=== PATIENT | male | born 1975 | race Caucasian/White ===

== ENCOUNTER 2017-09-29 09:06 | Emergency (ER) | payer BC, OTHER ==
[2017-09-29 09:17] VITALS: BP 162/99; PULSE 118; RESP 20; TEMP 98
--- NOTE | 2017-09-29 09:32 | ED ---
Seizure HPI - General Chief Complaint: Seizure Stated Complaint: SEIZURE Time Seen by Provider: 09/29/17 09:12 Source: patient, EMS Mode of arrival: EMS Limitations: no limitations - History of Present Illness Initial Comments: Patient reportedly had a seizure. He states that he hit the back of his head during the seizure, but he currently has no pain anywhere. He has no neck pain or stiffness. He has no change in vision or hearing. He does not feel like he is going to have another seizure. He has no fever, chills, chest pain or shortness of breath. He has no belly or back pain. He has no nausea or vomiting. He has no lightheadedness or dizziness. He has no focal weakness or trouble walking. He is tolerating oral intate. - Related Data Home Medications Medication Instructions Recorded Confirmed No Known Home Medications [No 09/29/17 09/29/17 Known Home Medications] Allergies Allergy/AdvReac Type Severity Reaction Status Date / Time No Known Allergies Allergy Verified 09/29/17 09:20 Review of Systems ROS Statement: Those systems with pertinent positive or pertinent negative responses have been documented in the HPI. ROS Other: All systems not noted in ROS Statement are negative. Past Medical History Past Medical History: No Reported History History of Any Multi-Drug Resistant Organisms: None Reported Additional Past Surgical History / Comment(s): cyst removal Past Psychological History: No Psychological Hx Reported Smoking Status: Current every day smoker Past Alcohol Use History: Abuse Past Drug Use History: None Reported General Exam Limitations: no limitations General appearance: alert, in no apparent distress Head exam: Present: atraumatic, normocephalic, normal inspection Eye exam: Present: normal appearance, PERRL, EOMI. Absent: scleral icterus, conjunctival injection, periorbital swelling ENT exam: Present: normal exam, mucous membranes moist Neck exam: Present: normal inspection. Absent: tenderness, meningismus, lymphadenopathy Respiratory exam: Present: normal lung sounds bilaterally. Absent: respiratory distress, wheezes, rales, rhonchi, stridor Cardiovascular Exam: Present: regular rate, normal rhythm, normal heart sounds. Absent: systolic murmur, diastolic murmur, rubs, gallop, clicks GI/Abdominal exam: Present: soft, normal bowel sounds. Absent: distended, tenderness, guarding, rebound, rigid Extremities exam: Present: normal inspection, full ROM, normal capillary refill. Absent: tenderness, pedal edema, joint swelling, calf tenderness Back exam: Present: normal inspection Neurological exam: Present: alert, oriented X3, CN II-XII intact Psychiatric exam: Present: normal affect, normal mood Skin exam: Present: warm, dry, intact, normal color. Absent: rash Course Vital Signs 09/29/17 09:10 Temperature 98.0 F Pulse Rate 118 H Respiratory 20 Rate Blood Pressure 162/99 O2 Sat by Pulse 100 Oximetry Medical Decision Making - Medical Decision Making Patient presents after a reported seizure. He has a completely normal physical examination. He does not want any workup. He is planning on leaving immediately. I advised him to stay for head imaging and laboratory workup. However he refused and is leaving against medical advice. Disposition Clinical Impression: Generalized seizure Disposition: Left Against Medical Advice Condition: Good Instructions: New-Onset Seizure in Adults (ED) Referrals: Alexandria Youngblood MD [Primary Care Provider] - 1-2 days Time of Disposition: 09:32
== END 2017-09-29 09:35 | disposition left against medical advice (07) ==
LOC: EC 09:06
DX: R56.9 Unspecified convulsions (principal); F17.200 Nicotine dependence, unspecified, uncomplicated
CPT/HCPCS: 99284

== ENCOUNTER 2017-09-29 16:56 | Emergency (ER) | payer BC, OTHER ==
[2017-09-29] MEDS ORDERED: RX INFO: IV CONTRAST WAS GIVEN 1 EACH MISC MISCELLANE PRN (17:01)
[2017-09-29 17:11] LABS: Glucose,Whole Blood 102 mg/dL (75-99)
[2017-09-29] MEDS ORDERED: levETIRAcetam IV 1,000 MG in SALINE 1 100ML.BAG IVPB STA (17:23)
--- NOTE | 2017-09-29 17:25 | ED ---
General Adult HPI - General Chief complaint: Neuro Symptoms/Deficit Stated complaint: Alterd Mental State Time Seen by Provider: 09/29/17 16:56 Source: EMS, RN notes reviewed Mode of arrival: EMS Limitations: altered mental status, physical limitation - History of Present Illness Initial comments: Patient is a 41-year-old male presenting by EMS for change in mental status. Patient answers questions inappropriately and is not a reliable historian. Reportedly patient had a seizure earlier. Patient came to the emergency department and left refusing treatment. came home from work and found patient sleeping and altered. EMS feels patient has right-sided weakness. - Related Data Home Medications Medication Instructions Recorded Confirmed No Known Home Medications [No 09/29/17 09/29/17 Known Home Medications] Allergies Allergy/AdvReac Type Severity Reaction Status Date / Time No Known Allergies Allergy Verified 09/29/17 17:17 Review of Systems ROS Statement: Those systems with pertinent positive or pertinent negative responses have been documented in the HPI. ROS Other: All systems not noted in ROS Statement are negative. Limitations: ROS unobtainable due to patients medical condition Past Medical History Past Medical History: No Reported History History of Any Multi-Drug Resistant Organisms: None Reported Additional Past Surgical History / Comment(s): cyst removal Past Psychological History: No Psychological Hx Reported Smoking Status: Current every day smoker Past Alcohol Use History: Abuse Past Drug Use History: None Reported General Exam Limitations: altered mental status, physical limitation General appearance: alert, other (Patient has difficulty following commands. Inappropriate responses verbally.) Head exam: Present: other (Soft tissue swelling left posterior parietal region.) Eye exam: Present: normal appearance, PERRL, other (Difficulty with gaze to the right, limited exam.) ENT exam: Present: normal oropharynx Neck exam: Present: other (C-collar was applied). Absent: tenderness Respiratory exam: Present: normal lung sounds bilaterally Cardiovascular Exam: Present: regular rate, normal rhythm Expanded Peripheral pulses: 2+: Radial (R), Radial (L), Dorsalis Pedis (R), Dorsalis Pedis (L) GI/Abdominal exam: Present: soft. Absent: tenderness Extremities exam: Present: normal inspection Neurological exam: Present: alert, altered Expanded Neurological exam: Present: other (Inappropriate words. Does not follow commands. Patient does appear to have right-sided facial weakness on limited exam. Patient appears to have right upper extremity weakness and does not withdraw from pain. Patient does withdraw from pain to other extremities. Difficult with gaze to the right. Patient does move left upper and lower extremity spontaneously. No spontaneous movement of the right leg however does withdraw to pain.) Speech: Present: expressive aphasia Motor strength exam: RUE: 0 Eye Response: (4) open spontaneously Motor Response: (4) withdraws to pain Verbal Response: (3) inappropriate words Psychiatric exam: Present: normal affect, normal mood Skin exam: Present: normal color Course Vital Signs 09/29/17 09/29/17 09/29/17 17:08 17:15 17:30 Temperature 98.0 F Pulse Rate 84 65 60 Respiratory 18 16 20 Rate Blood Pressure 136/84 131/85 125/82 O2 Sat by Pulse 98 99 96 Oximetry 09/29/17 17:45 Temperature Pulse Rate 76 Respiratory 18 Rate Blood Pressure 125/82 O2 Sat by Pulse 96 Oximetry - Reevaluation(s) Reevaluation #1: 09/29/17 17:23 Case was discussed in detail with neural interventional list Dr. Cross who will accept transfer to [facility]. He does recommend blood pressure systolic less than 160 and Keppra 1000 mg. 09/29/17 17:40 Mother is present. Further history taken from the mother. She states patient this morning was in the garage and suddenly passed out and had reported seizure activity. She states no history of seizure. Patient is in the process of detoxing from alcohol. Patient was in a facility in [place] recently. She states he may have had a drink a few days ago however is not quite certain because the patient could not recall. Mother states after the seizure this morning when he returned home he was acting normal. She states he did take a longer nap for around 3 hours and noticed him acting abnormal at that point. Mother is updated on results and concern and plan. 09/29/17 18:01 Return phone call from [facility] and patient will go to room 514. Patient will be intubated for airway control. 09/29/17 18:18 IV labetalol will be provided to EMS for blood pressure control if systolic blood pressure raises more than 160. EKG Findings - EKG Comments: EKG Findings:: Normal sinus rhythm 76. AL 122. QRS 84. QT 380. QTC 427. Normal axis. Normal QRS. No acute ST change. Procedures - Intubation Sedative: Versed Paralytic: Succinylcholine (Patient was not able to be fully sedated with Versed to allow intubation.) Laryngoscope: Larkin Size: 3 ET Tube Size: 8 Tube Secured Depth (cm): 23 Tube Placement Confirmation: visualized tube passing through cords, equal breath sounds bilaterally, no breath sounds over epigastrium Patient Tolerated Procedure: well, no complications Intubation Complications: none Medical Decision Making - Lab Data Result diagrams: 09/29/17 17:09/29/17 17:03 Lab Results 09/29/17 09/29/17 09/29/17 Range/Units 17:03 17:03 17:03 WBC 15.8 H (3.8-10.6) k/uL RBC 4.90 (4.30-5.90) m/uL Hgb 15.5 (13.0-17.5) gm/dL Hct 48.1 (39.0-53.0) % MCV 98.2 (80.0-100.0) fL MCH 31.6 (25.0-35.0) pg MCHC 32.2 (31.0-37.0) g/dL RDW 15.4 (11.5-15.5) % PT (9.0-12.0) sec INR (<1.2) APTT (22.0-30.0) sec Sodium 136 L (137-145) mmol/L Potassium 4.0 (3.5-5.1) mmol/L Chloride 103 (98-107) mmol/L Carbon Dioxide 22 (22-30) mmol/L Anion Gap 11 mmol/L BUN 10 (9-20) mg/dL Creatinine 0.60 L (0.66-1.25) mg/dL Est GFR (MDRD) Af Amer >60 (>60 ml/min/1.73 sqM) Est GFR (MDRD) Non-Af >60 (>60 ml/min/1.73 sqM) Glucose 106 H (74-99) mg/dL POC Glucose (mg/dL) (75-99) mg/dL POC Glu Real Time Operator ID Calcium 10.0 (8.4-10.2) mg/dL Total Bilirubin 0.8 (0.2-1.3) mg/dL AST 145 H (17-59) U/L ALT 132 H (21-72) U/L Alkaline Phosphatase 114 (38-126) U/L Total Creatine Kinase 431 H (55-170) U/L CK-MB (CK-2) 2.5 H* (0.0-2.4) ng/mL CK-MB (CK-2) Rel Index 0.6 Troponin I 0.016 (0.000-0.034) ng/mL Total Protein 7.0 (6.3-8.2) g/dL Albumin 4.1 (3.5-5.0) g/dL Serum Alcohol <10 mg/dL 09/29/17 09/29/17 Range/Units 17:03 17:06 WBC (3.8-10.6) k/uL RBC (4.30-5.90) m/uL Hgb (13.0-17.5) gm/dL Hct (39.0-53.0) % MCV (80.0-100.0) fL MCH (25.0-35.0) pg MCHC (31.0-37.0) g/dL RDW (11.5-15.5) % PT 9.9 (9.0-12.0) sec INR 1.0 (<1.2) APTT 23.9 (22.0-30.0) sec Sodium (137-145) mmol/L Potassium (3.5-5.1) mmol/L Chloride (98-107) mmol/L Carbon Dioxide (22-30) mmol/L Anion Gap mmol/L BUN (9-20) mg/dL Creatinine (0.66-1.25) mg/dL Est GFR (MDRD) Af Amer (>60 ml/min/1.73 sqM) Est GFR (MDRD) Non-Af (>60 ml/min/1.73 sqM) Glucose (74-99) mg/dL POC Glucose (mg/dL) 102 H (75-99) mg/dL POC Glu Real Time Operator ID Leeann Sommer Calcium (8.4-10.2) mg/dL Total Bilirubin (0.2-1.3) mg/dL AST (17-59) U/L ALT (21-72) U/L Alkaline Phosphatase (38-126) U/L Total Creatine Kinase (55-170) U/L CK-MB (CK-2) (0.0-2.4) ng/mL CK-MB (CK-2) Rel Index Troponin I (0.000-0.034) ng/mL Total Protein (6.3-8.2) g/dL Albumin (3.5-5.0) g/dL Serum Alcohol mg/dL - Radiology Data Radiology results: report reviewed (Computed tomography scan of the cervical spine shows no acute fracture or dislocation.), image reviewed (Computed tomography scan of the brain shows large left intracranial hemorrhage with local mass effect. Mao left scalp hematoma.) Critical Care Time Critical Care Time: Yes Total Critical Care Time: 36 Disposition Clinical Impression: Intracranial hemorrhage Disposition: OTHER INSTITUTION NOT DEFINED Referrals: Alexandria Youngblood MD [Primary Care Provider] - 1-2 days Time of Disposition: 18:19 - Out of Hospital Transfer - Req. Specs Out of Hospital Transfer - Requested Specifics: Other Emergency Center
--- NOTE | 2017-09-29 17:30 | CT ---
EXAMINATION TYPE: CT brain wo con for TPA DATE OF EXAM: 09/29/2017 COMPARISON: NONE HISTORY: Patient had possible seizure with fall today. Neurological deficits. CT DLP: 903.4 mGycm Automated exposure control for dose reduction was used. FINDINGS: There is 5.6 cm AP by 4.4 cm transverse by 5.8 cm craniocaudal dimension on axial image 38 and sagitt al image 32 with some peripheral hypodensity strongly suspicious for large acute intraparenchymal hem orrhage. Local mass effect is present. There is midline shift of 5 to 6 mm just above level of septum pellucidum on axial image 32. There is large left-sided acute scalp hematoma. The calvarium is intac t. There is near complete opacification or hemorrhage into the right maxillary sinus. Remainder paran juancho sinuses are clear. Visualized globes are intact bilaterally. Suprasellar cistern is maintained. Posterior fossa is within normal limits. IMPRESSION: Large left-sided acute intraparenchymal hemorrhage with local mass effect and small degree of midline shift. Large adjacent left-sided scalp hematoma. Critical results communicated to ordering ER physician via telephone at time of dictation.
--- NOTE | 2017-09-29 17:34 | CT ---
EXAMINATION TYPE: CT cervical spine wo con DATE OF EXAM: 09/29/2017 COMPARISON: NONE HISTORY: Patient had possible seizure with fall today. Neurological deficits. CT DLP: 346.4 mGycm. Automated Exposure Control for Dose Reduction was Utilized. TECHNIQUE: CT scan of the cervical spine is obtained without contrast, axial images are obtained, sa gittal and coronal reformatted images are also reviewed. FINDINGS: Cervical spine is visualized in its entirety from C1 through upper thoracic levels, demonst rates straightened alignment without evidence of acute fracture or dislocation. Prevertebral soft ti ssue appears within normal limits. The C1-C2 articulation is within normal limits on the coronal andre ges. Vertebral body heights are maintained. There is moderate disc space narrowing and spurring C5-C6 leve l. There is mild to moderate spurring and disc space narrowing C6-C7 level. Some artifact lower cervi rosie levels is present. Spinal canal is grossly preserved. Review of axial images shows left-sided uncovertebral facet degenerative changes C2-C3 and C3-C4 leve l. There is marginal spurring causing moderate to severe right and mild to moderate left-sided neural foraminal narrowing C5-C6 level on axial image 35. Thyroid gland is within normal limits. There is e mphysematous change with bleb formation in both apices. IMPRESSION: There is no acute fracture or dislocation evident in the cervical spine.
[2017-09-29 17:41] LABS: Basophils # (A) 0.1 k/uL (0-0.2); Basophils % (A) 0 %; CH 32.5; CHCM 33.2; Eosinophils # (A) 0.1 k/uL (0-0.7); Eosinophils % (A) 1 %; HCT 48.1 % (39.0-53.0); HDW 2.07; HGB 15.5 gm/dL (13.0-17.5); Luc # (Auto) 0.33; Luc % (Auto) 2; Lymphocytes # (A) 1.5 k/uL (1.0-4.8); Lymphocytes % (A) 9 %; MCH 31.6 pg (25.0-35.0); MCHC 32.2 g/dL (31.0-37.0); MCV 98.2 fL (80.0-100.0); Mean Platelet Volume 8.9; Monocytes % (A) 6 %; Neutrophils # (A) 12.8 k/uL (1.3-7.7); Neutrophils % (A) 81 %; RDW 15.4 % (11.5-15.5); WBC 15.8 k/uL (3.8-10.6); WBC (Perox) 15.56
[2017-09-29 17:44] LABS: ALT 132 U/L (21-72); AST 145 U/L (17-59); Alcohol <10 mg/dL; Alkaline Phosphatase 114 U/L (38-126); Anion Gap 11 mmol/L; Blood Urea Nitrogen 10 mg/dL (9-20); Carbon Dioxide 22 mmol/L (22-30); Chloride 103 mmol/L (98-107); Glucose 106 mg/dL (74-99); Non-African American GFR(MDRD) >60 (>60 ml/min/1.73 sqM); Sodium 136 mmol/L (137-145); Total Bilirubin 0.8 mg/dL (0.2-1.3)
[2017-09-29] MEDS ORDERED: LORazepam 2 MG/ML INJ IV PRN (17:50)
[2017-09-29] MEDS ORDERED: MIDAZOLAM (PF) 1 MG/ML 5 ML VIAL IV STA (17:51)
[2017-09-29] MEDS ORDERED: LIDOCAINE 2% INJ 20 MG/ML (20 ML MDV) IV ONE (17:51)
[2017-09-29 17:53] LABS: Partial Thromboplastin Time 23.9 sec (22.0-30.0); Prothrombin Time 9.9 sec (9.0-12.0)
[2017-09-29 17:54] LABS: Troponin I 0.016 ng/mL (0.000-0.034)
[2017-09-29 17:58] LABS: Creatine Kinase MB 2.5 ng/mL (0.0-2.4)
[2017-09-29] MEDS ORDERED: LIDOCAINE 2% SYG (PF) 100 MG/5 ML IV STA (18:09)
[2017-09-29] MEDS ORDERED: SUCCINYLCHOLINE CHLORIDE VIAL 200 MG/10 ML VIAL IV STA (18:12)
[2017-09-29] MEDS ORDERED: PROPOFOL 1,000 MG/100 ML VIAL IV ONE (18:29)
[2017-09-29] MEDS ORDERED: LABETALOL 5 MG/ML VIAL MDV IVP PRN (18:30)
[2017-09-29] MEDS: PROPOFOL 1,000 MG/100 ML VIAL IV SCH ×2 (18:31→18:48)
--- NOTE | 2017-09-29 18:36 | XR ---
EXAMINATION TYPE: XR chest 1V portable DATE OF EXAM: 09/29/2017 COMPARISON: NONE HISTORY: Tube placement. TECHNIQUE: Single AP portable frontal supine view of the chest is obtained. FINDINGS: There is endotracheal tube with tip at midclavicular margin, approximately 4 to 5 cm above the layne. There is orogastric tube projecting below left hemidiaphragm. Low lung volumes are present. There is central congestion. There is no suspicious peripheral focal ai rspace opacity, pleural effusion, or pneumothorax seen bilaterally. Cardiac silhouette size is upper limits of normal. Prominent mediastinum may be projectional. Correlate for trauma. Visualized osseous structures are intact. IMPRESSION: Endotracheal and orogastric tubes are satisfactory in position. Other findings as noted a soheila.
[2017-09-29] MEDS: LORazepam 2 MG/ML INJ IV PRN ×2 (18:42→18:49)
[2017-09-29 19:13] VITALS: BP 128/71; PULSE 108; RESP 14; TEMP 97.9
== END 2017-09-29 19:05 | disposition other institution (70) ==
LOC: EC 16:56
DX: I62.9 Nontraumatic intracranial hemorrhage, unspecified (principal); F17.200 Nicotine dependence, unspecified, uncomplicated
CPT/HCPCS: 99291; 31500; 96365; 96375 ×3; 36415; 94002; 93005; 80053; 82550; 82553; 84484; 85025; 85610; 85730; 80306; 80320; 71010; 72125; 70450; J0330; J2060; J2001; J2250; J2704; J1953; 99284

== ENCOUNTER → 2017-12-31 | Outpatient (CLI) | payer BC ==
--- NOTE | 2017-12-31 08:23 | CT ---
EXAMINATION TYPE: CT brain wo con DATE OF EXAM: 12/31/2017 COMPARISON: 12/17/2017, 09/29/2017 INDICATION: Seizure recent brain surgery DLP: 892.1 mGycm, Automated exposure control for dose reduction was used. CONTRAST: None CT of the brain is performed utilizing 3 mm thick sections through the posterior fossa and 3 mm thick sections through the remaining calvarium. Study is performed within 24 hours of arrival to the hosp ital. There is a left temporal craniotomy. Some minimal extra-axial air is adjacent compatible with the pat ient's recent surgery. There is some hypodensity in the lateral aspect of the distal left temporal lo be laterally adjacent to the craniotomy. Some ischemic change may be present at this location. Postsu rgical encephalomalacia change could be considered. This is an interval change from 12/17/2017. There is been interval placement of a osseous craniotomy plate and multiple skin mirna are present superficially. There is some superficial subcutaneous air present small amount of fluid appears to be adjacent to the dura. This is likely postsurgical fluid. This has a depth of 0.5 cm. Subacute subdur al hemorrhage could be considered. Acute hemorrhage is not identified The white matter hypodensity at the centrum semiovale probably posteriorly is improved. There is some local mass effect on the adjacent sulci. Small amount of hypodensity is in the left frontal lobe shon r the craniotomy plate which may be better visualized currently than the previous exam. This may be s lightly enlarged. Fourth ventricle is midline. Third ventricle is midline. Lateral ventricles are normal position. Righ t lateral ventricle appears unremarkable. The left lateral ventricle is slightly prominent in the occ ipital region which may be related to some ex vacuo effect. No acute intracranial hemorrhages are evident. No acute infarcts are evident. IMPRESSIONS: 1. Postsurgical changes with recent placement of a osseous plate through the calvarial defect on th e left. Postsurgical changes are adjacent. 2. No acute hemorrhage. Postsurgical change versus subacute minimal subdural hematoma on the left wit hout significant mass effect on the adjacent brain. 3. New area of hypodensity within the lateral distal left temporal lobe and increasing hypodensity in the left frontal lobe. Encephalomalacia changes versus subacute infarcts could be considered. 4. Encephalomalacia changes from prior hemorrhage site in the left centrum semiovale appears diminish ed in size compared to the recent exam.
== END | disposition home or self-care (01) ==
LOC: RADXRMAIN 07:50
PROVIDERS: ATTEND Family Medicine
DX: R90.89 Other abnormal findings on diagnostic imaging of central nervous system (principal)
CPT/HCPCS: 70450

== ENCOUNTER 2018-08-04 13:12 | Emergency (ER) | payer BC ==
[2018-08-04] MEDS ORDERED: LORazepam 2 MG/ML INJ IV STA (13:23)
[2018-08-04 13:29] VITALS: RESP 18; TEMP 98.9
--- NOTE | 2018-08-04 13:37 | ED ---
General Adult HPI - General Stated complaint: Seizure Time Seen by Provider: 08/04/18 13:12 Source: RN notes reviewed - History of Present Illness Initial comments: This is a 42-year-old male with past medical history significant for alcoholism stroke and seizures. Patient takes Depakote daily. Patient continues to drink. Patient states the last time he drank was yesterday. Patient's states he had a seizure that last approximate 5 minutes and he had a postictal states that lasted about 10 minutes. Patient denies any drinking today. Patient states she's not been ill recently at all. Patient denies any recent fever chills. Patient denies any chest pain palpitations difficulty breathing shortness of breath. Patient denies abdominal pain patient denies nausea vomiting diarrhea. Patient denies any headache patient denies any new numbness or weakness. Patient states he has residual right-sided weakness of the arm and leg but nothing is worse currently - Related Data Home Medications Medication Instructions Recorded Confirmed Divalproex ER [Depakote ER] 250 mg PO BID 08/04/18 08/04/18 Allergies Allergy/AdvReac Type Severity Reaction Status Date / Time No Known Allergies Allergy Verified 08/04/18 13:59 Review of Systems ROS Statement: Those systems with pertinent positive or pertinent negative responses have been documented in the HPI. ROS Other: All systems not noted in ROS Statement are negative. Past Medical History Past Medical History: No Reported History History of Any Multi-Drug Resistant Organisms: None Reported Additional Past Surgical History / Comment(s): cyst removal Past Psychological History: No Psychological Hx Reported Smoking Status: Current every day smoker Past Alcohol Use History: Abuse Past Drug Use History: None Reported General Exam - General Exam Comments Initial Comments: GENERAL: Patient is well-developed and well-nourished. Patient is nontoxic and well- hydrated and is in mild distress. ENT: Neck is soft and supple. No significant lymphadenopathy is noted. Oropharynx is clear. Moist mucous membranes. Neck has full range of motion without eliciting any pain. EYES: The sclera were anicteric and conjunctiva were pink and moist. Extraocular movements were intact and pupils were equal round and reactive to light. Eyelids were unremarkable. PULMONARY: Unlabored respirations. Good breath sounds bilaterally. No audible rales rhonchi or wheezing was noted. CARDIOVASCULAR: There is a regular rate and rhythm without any murmurs gallops or rubs. ABDOMEN: Soft and nontender with normal bowel sounds. SKIN: Skin is clear with no lesions or rashes and otherwise unremarkable. NEUROLOGIC: Patient is alert and oriented x3. Cranial nerves II through XII are grossly intact. Motor and sensory are also intact. Normal speech, volume and content. Symmetrical smile. MUSCULOSKELETAL: Normal extremities with adequate strength and full range of motion. LYMPHATICS: No significant lymphadenopathy is noted PSYCHIATRIC: Normal psychiatric evaluation. Course Vital Signs 08/04/18 13:25 Temperature 98.9 F Pulse Rate 66 Respiratory 18 Rate Blood Pressure 129/79 O2 Sat by Pulse 97 Oximetry Medical Decision Making - Medical Decision Making Patient's Depakote level was low. I gave the patient 500 mg difficulty in the emergency department. Patient's states he does not take his medications regular. Patient's states he won't stop drinking daily. - Lab Data Result diagrams: 08/04/18 13:33 08/04/18 13:33 Lab Results 08/04/18 08/04/18 Range/Units 13:33 13:33 WBC 10.2 (3.8-10.6) k/uL RBC 5.34 (4.30-5.90) m/uL Hgb 16.2 (13.0-17.5) gm/dL Hct 50.0 (39.0-53.0) % MCV 93.7 (80.0-100.0) fL MCH 30.3 (25.0-35.0) pg MCHC 32.3 (31.0-37.0) g/dL RDW 15.0 (11.5-15.5) % Plt Count 209 (150-450) k/uL Neutrophils % 77 % Lymphocytes % 14 % Monocytes % 6 % Eosinophils % 1 % Basophils % 0 % Neutrophils # 7.8 H (1.3-7.7) k/uL Lymphocytes # 1.4 (1.0-4.8) k/uL Monocytes # 0.6 (0-1.0) k/uL Eosinophils # 0.1 (0-0.7) k/uL Basophils # 0.1 (0-0.2) k/uL Sodium 138 (137-145) mmol/L Potassium 4.7 (3.5-5.1) mmol/L Chloride 104 (98-107) mmol/L Carbon Dioxide 23 (22-30) mmol/L Anion Gap 11 mmol/L BUN 11 (9-20) mg/dL Creatinine 0.72 (0.66-1.25) mg/dL Est GFR (CKD-EPI)AfAm >90 (>60 ml/min/1.73 sqM) Est GFR (CKD-EPI)NonAf >90 (>60 ml/min/1.73 sqM) Glucose 100 H (74-99) mg/dL Calcium 9.4 (8.4-10.2) mg/dL Magnesium 1.9 (1.6-2.3) mg/dL Total Bilirubin 0.8 (0.2-1.3) mg/dL AST 49 (17-59) U/L ALT 43 (21-72) U/L Alkaline Phosphatase 86 (38-126) U/L Total Protein 6.8 (6.3-8.2) g/dL Albumin 4.2 (3.5-5.0) g/dL Valproic Acid 13.8 ug/mL Serum Alcohol <10 mg/dL Disposition Clinical Impression: Generalized seizure, Alcohol abuse, Noncompliance with medications Disposition: HOME SELF-CARE Condition: Good Instructions: Recurrent Seizures in Adults (ED), Abuse of Alcohol (ED) Is patient prescribed a controlled substance at d/c from ED?: No Referrals: Gus Murphy DO [STAFF PHYSICIAN] - 1-2 days Time of Disposition: 14:17
[2018-08-04 13:44] LABS: Basophils # (A) 0.1 k/uL (0-0.2); Basophils % (A) 0 %; Eosinophils # (A) 0.1 k/uL (0-0.7); Eosinophils % (A) 1 %; HGB 16.2 gm/dL (13.0-17.5); Lymphocytes # (A) 1.4 k/uL (1.0-4.8); Lymphocytes % (A) 14 %; MCH 30.3 pg (25.0-35.0); MCHC 32.3 g/dL (31.0-37.0); MCV 93.7 fL (80.0-100.0); Mean Platelet Volume 6.8; Monocytes # (A) 0.6 k/uL (0-1.0); Monocytes % (A) 6 %; Neutrophils # (A) 7.8 k/uL (1.3-7.7); Neutrophils % (A) 77 %; Platelet Count 209 k/uL (150-450); RBC 5.34 m/uL (4.30-5.90); WBC 10.2 k/uL (3.8-10.6)
[2018-08-04 13:53] LABS: ALT 43 U/L (21-72); AST 49 U/L (17-59); Albumin 4.2 g/dL (3.5-5.0); Alcohol <10 mg/dL; Alkaline Phosphatase 86 U/L (38-126); Anion Gap 11 mmol/L; Blood Urea Nitrogen 11 mg/dL (9-20); Calcium 9.4 mg/dL (8.4-10.2); Carbon Dioxide 23 mmol/L (22-30); Chloride 104 mmol/L (98-107); Glucose 100 mg/dL (74-99); Magnesium 1.9 mg/dL (1.6-2.3); Potassium 4.7 mmol/L (3.5-5.1); Sodium 138 mmol/L (137-145); Total Bilirubin 0.8 mg/dL (0.2-1.3); Total Protein 6.8 g/dL (6.3-8.2)
[2018-08-04 13:58] LABS: Valproic Acid (Depakene) 13.8 ug/mL
[2018-08-04] MEDS ORDERED: DIVALPROEX 500 MG TABLET.DR PO STA (14:06)
[2018-08-04 14:21] VITALS: BP 130/74; PULSE 67
== END 2018-08-04 14:27 | disposition home or self-care (01) ==
LOC: EC 13:12
DX: R56.9 Unspecified convulsions (principal); F10.10 Alcohol abuse, uncomplicated; Z91.14 Patient's other noncompliance with medication regimen; F17.200 Nicotine dependence, unspecified, uncomplicated; Z79.899 Other long term (current) drug therapy
CPT/HCPCS: 36415; 80053; 80164; 80320; 83735; 85025; 96374; 99284

== ENCOUNTER → 2018-08-24 | Outpatient (CLI) | payer BC ==
[2018-08-24 11:47] LABS: Basophils # (A) 0.1 k/uL (0-0.2); Basophils % (A) 1 %; Eosinophils # (A) 0.1 k/uL (0-0.7); Eosinophils % (A) 1 %; HGB 16.3 gm/dL (13.0-17.5); Lymphocytes # (A) 2.3 k/uL (1.0-4.8); Lymphocytes % (A) 23 %; MCH 30.5 pg (25.0-35.0); MCHC 32.6 g/dL (31.0-37.0); MCV 93.5 fL (80.0-100.0); Mean Platelet Volume 6.9; Monocytes # (A) 0.7 k/uL (0-1.0); Monocytes % (A) 7 %; Neutrophils # (A) 6.9 k/uL (1.3-7.7); Neutrophils % (A) 68 %; Platelet Count 288 k/uL (150-450); RBC 5.35 m/uL (4.30-5.90); RDW 14.4 % (11.5-15.5); WBC 10.1 k/uL (3.8-10.6)
[2018-08-24 11:56] LABS: Sodium 136 mmol/L (137-145)
[2018-08-24 11:57] LABS: ALT 26 U/L (21-72); AST 19 U/L (17-59); Albumin 4.2 g/dL (3.5-5.0); Alkaline Phosphatase 71 U/L (38-126); Anion Gap 10 mmol/L; Blood Urea Nitrogen 10 mg/dL (9-20); Calcium 9.5 mg/dL (8.4-10.2); Carbon Dioxide 25 mmol/L (22-30); Chloride 101 mmol/L (98-107); Glucose 86 mg/dL (74-99); Potassium 4.5 mmol/L (3.5-5.1); Total Bilirubin 0.5 mg/dL (0.2-1.3); Total Protein 6.9 g/dL (6.3-8.2)
[2018-08-24 12:02] LABS: Valproic Acid (Depakene) 18.6 ug/mL
== END | disposition home or self-care (01) ==
LOC: LABWHC1 09:57
PROVIDERS: ATTEND Psychiatry & Neurology Neurology
DX: G40.909 Epilepsy, unspecified, not intractable, without status epilepticus (principal); T50.905A Adverse effect of unspecified drugs, medicaments and biological substances, initial encounter
CPT/HCPCS: 36415; 80053; 80164; 85025

== ENCOUNTER 2023-09-29 09:44 | Day surgery (SDC) | payer MEDICARE, OTHER ==
[2023-09-27 13:08] VITALS: BMI 22.9
--- NOTE | 2023-09-29 08:44 | P.GSHP ---
History of Present Illness H&P Date: 09/29/23 CHIEF COMPLAINT: Colon screen HISTORY OF PRESENT ILLNESS: The patient is a 47 year-old male who presents for colon screen. Lower endoscopy was offered for further evaluation and management. PAST MEDICAL HISTORY: Please see list. PAST SURGICAL HISTORY: Please see list. MEDICATIONS: Please see list. ALLERGIES: Please see list. SOCIAL HISTORY: No illicit drug use FAMILY HISTORY: No reports of Crohn disease or ulcerative colitis. REVIEW OF ORGAN SYSTEMS: CONSTITUTIONAL: No reports of fevers or chills. PHYSICAL EXAM: VITAL SIGNS: Stable GENERAL: Well-developed pleasant in no acute distress. HEENT: No scleral icterus. Extraocular movements grossly intact. Moist buccal mucosa. NECK: Supple without lymphadenopathy. CHEST: Unlabored respirations. Equal bilateral excursions. CARDIOVASCULAR: Regular rate and rhythm. Distal 2+ pulses. ABDOMEN: Soft, nontender, nondistended. MUSCULOSKELETAL: No clubbing, cyanosis, or edema. ASSESSMENT: 1. Colon screen. PLAN: 1. 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 Smoking Status: Current every day smoker - Past Family History Father Family Medical History: Cancer, Diabetes Mellitus Additional Family Medical History / Comment(s): lung CA Mother Additional Family Medical History / Comment(s): breast CA Medications and Allergies Home Medications Medication Instructions Recorded Confirmed Type levETIRAcetam [Keppra] 250 mg PO TID@0600,1800,2200 09/27/23 09/27/23 History Allergies Allergy/AdvReac Type Severity Reaction Status Date / Time No Known Allergies Allergy Verified 09/27/23 12:20
[~2023-09-29 09:44] MED LIST: LACTATED RINGERS 1,000 ML IV SCH
[2023-09-29 10:11] VITALS: TEMP 98.5
[2023-09-29] MEDS ORDERED: PROPOFOL 10 MG/ML 20 ML VIAL IV ONE (10:19)
[2023-09-29 11:29] VITALS: RESP 14
--- NOTE | 2023-09-29 12:09 | P.PCN ---
Date of Procedure: 09/29/23 Description of Procedure: PREOPERATIVE DIAGNOSIS: Colonoscopy screening POSTOPERATIVE DIAGNOSIS: Tubular adenoma hepatic flexure Tubular adenoma transverse colon Rectal adenoma Sigmoid diverticulosis OPERATION: Colonoscopy to the ileocecal valve and appendiceal orifice, cecum Colonoscopy with hot snare polypectomy Colonoscopy with injection of Crystal ink 2, transverse colon, descending colon SURGEON: Beba Mcneal MD. ANESTHESIA: MAC. INDICATIONS: The patient is an 47-year-old male who prefers colonoscopy screening. Benefits and risks were described and informed consent was obtained. DESCRIPTION OF PROCEDURE: The patient had undergone Sutab prep. The patient had been brought into the operating room and laid in the left lateral decubitus position. After adequate intravenous sedation, the rectum was examined with 2% lidocaine jelly. The prostate was unremarkable. External hemorrhoids were encountered. The rectal tone was within normal limits. No lesions were palpated in the rectal vault. An Olympus colonoscope was advanced until the cecum, ileocecal valve and appendiceal orifice were clearly viewed. The prep was poor to fair requiring moderate colonic irrigation. Severe sigmoid diverticulosis with tortuosity was encountered. Colonic polyps were found with incomplete resection admit transverse colon and descending colon with tattooing performed. No evidence of focal colitis was found. Retroflexion of the scope demonstrated grade 2 internal hemorrhoids without active bleeding or inflammation. The colon was desufflated. The patient had tolerated the procedure well. Withdrawal time was over 6 minutes. FINDINGS: Aronchick preparation quality scale 3+ (1-5) Internal hemorrhoids, grade 2 External hemorrhoids, grade 2. No arteriovenous malformations. Sigmoid diverticulosis, highly redundant Removal of 4 polyps: - Snare polypectomy ascending colon, 5 mm tubulovillous adenoma, resected however unable to retrieve - Snare polypectomy mid transverse colon, 13 mm flat villous adenoma, partial resection of right unable to retrieve, injection of Crystal ink, 3 mL - Snare polypectomy rectal, 12 mm flat villous adenoma - Snare polypectomy rectal, 30 mm flat villous adenoma, multiple passes, partial resection injection of Crystal ink 3 mL No focal colitis. RECOMMENDATIONS: Recommend immediate CT of the abdomen and pelvis for colon cancer Repeat lower endoscopy in 3 months, November 2022 Plan - Discharge Summary Discharge Rx Participant: No New Discharge Prescriptions: Continue levETIRAcetam [Keppra] 250 mg PO TID@0600,1800,2200 Discharge Medication List levETIRAcetam [Keppra] 250 mg PO TID@0600,1800,2200 09/27/23 [History] Follow up Appointment(s)/Referral(s): Beba Mcneal MD [STAFF PHYSICIAN] - 10/05/23 2:45 pm Patient Instructions/Handouts: *Surgery [facility] - (Anesthesia) Discharge Instructions Outpatient Surgery, Colorectal Polyps (GEN) Activity/Diet/Wound Care/Special Instructions: Colonoscopy 3 months, November 2023 Discharge Disposition: HOME SELF-CARE
[2023-09-29 12:25] VITALS: BP 135/81; PULSE 54
--- NOTE | 2023-09-29 13:21 | CT ---
EXAMINATION TYPE: CT abdomen pelvis w con DATE OF EXAM: 09/29/2023 COMPARISON: NONE HISTORY: 47 year old male Colon ca TECHNIQUE: Contiguous axial scanning of the abdomen and pelvis following administration of 100 ml Iso brit 300 IV contrast. Delayed images through the kidneys and coronal/sagittal reconstructions perform ed. CT DLP: 975 mGycm Automated exposure control for dose reduction was used. FINDINGS: LUNG BASES: No significant abnormality is appreciated. LIVER/GB: Low attenuation of the hepatic parenchyma and mild hepatomegaly at 18.4 cm. No focal liver lesion seen. Hickman caliber to the bile duct at 5 mm. Suspicious for a soft tissue filling defect in the lower bile duct, axial image 34 and coronal images 41 and 42. Portal venous system is patent. PANCREAS: No significant abnormality is seen. SPLEEN: No significant abnormality is seen. ADRENALS: No significant abnormality is seen. KIDNEYS: No significant abnormality is seen. BOWEL: Some scattered prominent fluid-filled small bowel loops throughout the abdomen. No dilated sma ll bowel, free fluid, or free air. Normal appendix. Some liquid stool in the right-sided colon. Moder ate circumferential wall thickening mid sigmoid colon, axial image 68. LYMPH NODES: No significant abnormality is seen. OTHER: No significant abnormality is seen. PELVIS: Mild circumferential bladder wall thickening. Prostate gland borderline at 4.1 cm wide. No ab normal fluid collection in pelvis or pelvic lymphadenopathy. Liquid stool in the rectum. BONES: Moderate to severe degenerative disc disease L5-S1. Facet arthropathy with trace grade 1 retro listhesis L2-L3 and L3-L4. IMPRESSION: 1. ANNULAR THICKENING MID SIGMOID COLON MAY REFLECT THE SITE OF PATIENT'S COLON CANCER. CLINICALLY CO RRELATE. NO SUSPICIOUS LYMPHADENOPATHY OR OTHER FINDINGS OF METASTATIC DISEASE IN THE ABDOMEN OR PELV IS. 2. FINDINGS SUSPICIOUS FOR A FILLING DEFECT IN THE LOWER BILE DUCT , AXIAL IMAGE 34 AND CORONAL IMAGE 41 AND 42. THE BILE DUCT IS BORDERLINE IN CALIBER AT 5 MM. EARLY BILIARY OBSTRUCTION NOT EXCLUDED. C ORRELATE WITH ALKALINE PHOSPHATASE AND BILIRUBIN LEVELS AND POSSIBLE ERCP IF INDICATED. 3. SCATTERED PROMINENT FLUID-FILLED SMALL BOWEL LOOPS THROUGHOUT MAY BE TRANSIENT OR COULD REFLECT AN ILEUS OR NONSPECIFIC ENTERITIS. ADDITIONAL LIQUID STOOL SCATTERED WITHIN THE COLON. 4. MILD HEPATOMEGALY AT 18.4 CM WITH MODERATE TO SEVERE HEPATIC STEATOSIS.
== END 2023-09-29 12:53 | disposition home or self-care (01) ==
LOC: ORWHC2ENDO 09:44
PROVIDERS: ATTEND Surgery Plastic and Reconstructive Surgery
DX: Z12.11 Encounter for screening for malignant neoplasm of colon (principal); D12.3 Benign neoplasm of transverse colon; D12.8 Benign neoplasm of rectum; K57.30 Diverticulosis of large intestine without perforation or abscess without bleeding; C18.9 Malignant neoplasm of colon, unspecified; F17.210 Nicotine dependence, cigarettes, uncomplicated; Z98.890 Other specified postprocedural states; Z79.899 Other long term (current) drug therapy
CPT/HCPCS: 74177; 45385; 45381; J2704; Q9967; 88305

== ENCOUNTER 2024-01-05 08:44 | Inpatient (IN) | payer MEDICARE ==
[2023-12-31 16:07] VITALS: BMI 23.5
[~2024-01-05 08:44] MED LIST changes: -LACTATED RINGERS 1,000 ML IV SCH; +LIDOCAINE 1% (10MG/ML) FOR IV START INTRADERMA PRN
[2024-01-05] MEDS ORDERED: Antibiotics per Pharmacy 1 EACH MISC MISCELLANE PRN (09:04)
[2024-01-05] MEDS ORDERED: HEPARIN SODIUM,PORCINE 5,000 UNIT/ML 1 ML VIAL SQ PRN (09:04)
--- NOTE | 2024-01-05 09:09 | P.GSHP ---
History of Present Illness H&P Date: 01/05/24 CHIEF COMPLAINT: Colon mass HISTORY OF PRESENT ILLNESS: The patient is a 48-year-old male who presents with multiple colon masses. He had a prior colonoscopy with poor prep with large masses identified of the sigmoid colon. Due to his incomplete prep, complete assessment and mucosa was limited. He presents today for endoscopy assessment followed by colon resection of large sigmoid colon mass and partial colon resection. PAST MEDICAL HISTORY: Please see list. PAST SURGICAL HISTORY: Please see list. MEDICATIONS: Please see list. ALLERGIES: Please see list. SOCIAL HISTORY: No illicit drug use FAMILY HISTORY: No reports of Crohn disease or ulcerative colitis. REVIEW OF ORGAN SYSTEMS: CONSTITUTIONAL: Denies any fever or chills. HEENT: Denies any trouble with vision or nosebleeds. No difficulty swallowing. LYMPHATIC: The patient denies any lumps and bumps around the neck. ENDOCRINE: Denies any thyroid disorders. RESPIRATORY: Denies pneumonia. Denies any troubles with breathing or dyspnea on exertion. CARDIOVASCULAR: Denies any chest pain, palpitations, or recent heart attacks GASTROINTESTINAL: Has gastroesophageal reflux disease GENITOURINARY: No blood in urine. MUSCULOSKELETAL: Has back pain, stiffness, joint arthritis. NEUROLOGIC: Traumatic brain injury. PSYCHIATRIC: Denies depression or suidical ideation. HEMATOLOGIC: Denies any abnormal bleeding or bruising. PHYSICAL EXAM: VITAL SIGNS: Stable GENERAL: Well-developed pleasant in no acute distress. HEENT: No scleral icterus. Extraocular movements grossly intact. Moist buccal mucosa. NECK: Supple without lymphadenopathy. CHEST: Unlabored respirations. Equal bilateral excursions. CARDIOVASCULAR: Regular rate and rhythm. Distal 2+ pulses. ABDOMEN: Soft, nontender, nondistended. MUSCULOSKELETAL: No clubbing, cyanosis, or edema. NERUO: Cranial nerves II through XII grossly intact PSYCH: Alert and oriented to person place and time. STUDIES: CT of the abdomen and pelvis review demonstrates highly redundant sigmoid colon with large sigmoid colon mass. This is my independent interpretation. ASSESSMENT: 1. Large colon mass 2. Traumatic brain injury 3. Multiple colon adenomas PLAN: 1. Recommend repeat colonoscopy due to poor prep and limited complete v isualization of the mucosa for additional colonic rolls. 2. Inpatient hospitalization due to comorbidities traumatic brain injury, poor prep and intolerance to nickel's prep 3. 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 Past Psychological History: No Psychological Hx Reported Smoking Status: Current every day smoker Past Alcohol Use History: Daily Additional Past Alcohol Use History / Comment(s): drinks 3-4 glasses of wine a night. Started smoking at age 14. Past Drug Use History: Marijuana Additional Drug Use History / Comment(s): uses marijuana 1-2 times per week - Past Family History Father Family Medical History: Cancer, Diabetes Mellitus Additional Family Medical History / Comment(s): lung CA Mother Additional Family Medical History / Comment(s): breast CA Medications and Allergies Home Medications Medication Instructions Recorded Confirmed Type levETIRAcetam [Keppra] 250 mg PO QAM 12/31/23 12/31/23 History levETIRAcetam [Keppra] 500 mg PO HS 12/31/23 12/31/23 History Allergies Allergy/AdvReac Type Severity Reaction Status Date / Time No Known Allergies Allergy Verified 12/31/23 15:41
[2024-01-05] MEDS: LACTATED RINGERS 1,000 ML IV SCH (09:27)
[2024-01-05 10:12] LABS: Basophils # (A) 0.1 k/uL (0-0.2); Basophils % (A) 1 %; Eosinophils # (A) 0.1 k/uL (0-0.7); Eosinophils % (A) 1 %; HCT 52.4 % (39.0-53.0); HGB 17.3 gm/dL (13.0-17.5); Lymphocytes # (A) 1.4 k/uL (1.0-4.8); Lymphocytes % (A) 13 %; MCH 34.1 pg (25.0-35.0); MCHC 33.1 g/dL (31.0-37.0); MCV 102.9 fL (80.0-100.0); Macrocytosis Slight; Mean Platelet Volume 8.5; Monocytes # (A) 0.8 k/uL (0-1.0); Monocytes % (A) 7 %; Neutrophils # (A) 8.1 k/uL (1.3-7.7); Neutrophils % (A) 76 %; Platelet Count 221 k/uL (150-450); RBC 5.09 m/uL (4.30-5.90); WBC 10.8 k/uL (3.8-10.6)
[2024-01-05 10:21] LABS: ALT 104 U/L (4-49); AST 121 U/L (17-59); African American GFR (CKD) >90 (>60 ml/min/1.73 sqM); Albumin 4.8 g/dL (3.5-5.0); Alkaline Phosphatase 107 U/L (38-126); Anion Gap 11 mmol/L; Blood Urea Nitrogen 12 mg/dL (9-20); Carbon Dioxide 19 mmol/L (22-30); Chloride 111 mmol/L (98-107); Glucose 99 mg/dL (74-99); Non-African American GFR(CKD) >90 (>60 ml/min/1.73 sqM); Potassium 4.5 mmol/L (3.5-5.1); Sodium 141 mmol/L (137-145); Total Bilirubin 0.9 mg/dL (0.2-1.3); Total Protein 7.6 g/dL (6.3-8.2)
[2024-01-05] MEDS ORDERED: PROPOFOL 10 MG/ML 20 ML VIAL IV ONE (10:33)
--- NOTE | 2024-01-05 10:55 | P.PCN ---
Date of Procedure: 01/05/24 Description of Procedure: PREOPERATIVE DIAGNOSIS: Colon adenoma, unresectable POSTOPERATIVE DIAGNOSIS: Sigmoid colon adenoma, unresectable Sigmoid diverticulosis OPERATION: Colonoscopy with injection of Crystal ink, 4 mL, sigmoid colon SURGEON: Beba Mcneal MD. ANESTHESIA: MAC. INDICATIONS: The patient is a 48-year-old male recently diagnosed with multiple large colon adenomas apart resection over 3 months ago. He presents today for neoplasm assessment including injection for Cypriot ink and polypectomy. Benefits and risks were described and informed consent was obtained. DESCRIPTION OF PROCEDURE: The patient had undergone Sutab prep. The patient had been brought into the operating room and laid in the left lateral decubitus position. After adequate intravenous sedation, the rectum was examined with 2% lidocaine jelly. The prostate was unremarkable. No external hemorrhoids were encountered. The rectal tone was within normal limits. No lesions were palpated in the rectal vault. An Olympus colonoscope was advanced with an obstructing polypoid mass without active bleeding down 50 cm from the anal verge, descending/sigmoid colon. The sigmoid colon was highly redundant. The prep was fair. Sigmoid diverticulosis was encountered. The tumor was over 3 cm in size unable to be resected. Area was injected with Crystal ink, 4 mL. The colon was desufflated. The patient had tolerated the procedure well. Withdrawal time was over 6 minutes. FINDINGS: Aronchick preparation quality scale 2+ (1-5) Internal hemorrhoids, grade 2 No external hemorrhoids No arteriovenous malformations. Sigmoid diverticulosis Large unresectable polypoid obstructing mass at descending/sigmoid colon, 50 cm from anal verge injected with Crystal ink, 4 mL. No focal colitis. RECOMMENDATIONS: Recommend immediate admission for colon resection due to unresectable mass and intolerance of bowel prep including comorbidities
[2024-01-05] MEDS: SODIUM CHLORIDE 0.9% 1,000 ML IV ONE ×2 (12:01→13:14)
[2024-01-05] MEDS: SODIUM CHLORIDE 0.9% 1,000 ML IV SCH (13:15)
[2024-01-05] MEDS: SODIUM CHLORIDE 0.9% 2,000 ML IV ONE (14:33)
[2024-01-05] MEDS: metroNIDAZOLE 500 MG TAB PO SCH (14:34)
[2024-01-05] MEDS: PEG 3350 (420 GM/BTL) + LYTES 4,000 ML BOTTLE PO ONE (14:35)
[2024-01-05] MEDS: NEOMYCIN 500 MG TABLET PO SCH (14:35)
[2024-01-05] MEDS ORDERED: ONDANSETRON 4 MG/2 ML VIAL IVP PRN (18:15)
[2024-01-05] MEDS: levETIRAcetam 500 MG TAB PO SCH (22:04)
[2024-01-05] MEDS: TEMAZEPAM 15 MG CAP PO ONE (22:04)
[2024-01-05] MEDS: SCOPOLAMINE 1 MG/72 HR PATCH TRANSDERM STA (22:04)
[2024-01-06] MEDS ORDERED: metroNIDAZOLE-NS PMX 500 MG in SALINE 1 100ML.BAG IVPB PRN (05:00)
[2024-01-06] MEDS: levETIRAcetam 250 MG TAB PO SCH (06:18)
[2024-01-06 06:19] LABS: Basophils % (A) 0 %; Eosinophils # (A) 0.1 k/uL (0-0.7); Eosinophils % (A) 1 %; HCT 48.2 % (39.0-53.0); HGB 15.5 gm/dL (13.0-17.5); Lymphocytes # (A) 1.6 k/uL (1.0-4.8); Lymphocytes % (A) 11 %; MCH 33.4 pg (25.0-35.0); MCHC 32.3 g/dL (31.0-37.0); MCV 103.4 fL (80.0-100.0); Macrocytosis Slight; Mean Platelet Volume 8.9; Monocytes % (A) 7 %; Neutrophils # (A) 10.8 k/uL (1.3-7.7); Neutrophils % (A) 79 %; Platelet Count 173 k/uL (150-450); RBC 4.66 m/uL (4.30-5.90); RDW 13.9 % (11.5-15.5); WBC 13.8 k/uL (3.8-10.6)
[2024-01-06 06:28] LABS: INR 0.9 (<1.2); Partial Thromboplastin Time 25.6 sec (22.0-30.0); Prothrombin Time 10.5 sec (10.0-12.5)
[2024-01-06 06:30] LABS: ALT 62 U/L (4-49); AST 43 U/L (17-59); African American GFR (CKD) >90 (>60 ml/min/1.73 sqM); Albumin 3.8 g/dL (3.5-5.0); Albumin/Globulin Ratio 1.6; Alkaline Phosphatase 78 U/L (38-126); Anion Gap 6 mmol/L; Blood Urea Nitrogen 7 mg/dL (9-20); Calcium 9.1 mg/dL (8.4-10.2); Carbon Dioxide 21 mmol/L (22-30); Chloride 111 mmol/L (98-107); Globulin 2.4 g/dL; Glucose 97 mg/dL (74-99); Non-African American GFR(CKD) >90 (>60 ml/min/1.73 sqM); Potassium 3.9 mmol/L (3.5-5.1); Sodium 138 mmol/L (137-145); Total Protein 6.2 g/dL (6.3-8.2)
--- NOTE | 2024-01-06 06:49 | P.HPADDEND ---
H&P Addendum H&P Addendum Date: 01/06/24 Completed colonoscopy with features of large unresectable sigmoid adenoma. Patient encouraged to complete bowel prep due to his persistent stool. White blood cell count elevated. LFTs has improved. Robotic sigmoid colectomy described for which patient's elevated risk due to pre-existing conditions. EKG reviewed. Inpatient hospitalization advised.
[2024-01-06] MEDS: LACTATED RINGERS 1,000 ML IV ONE ×4 (06:59→10:30)
[2024-01-06] MEDS ORDERED: ALVIMOPAN 12 MG CAPSULE PO PRN (07:00)
[2024-01-06] MEDS ORDERED: ACETAMINOPHEN TAB 500 MG TAB PO PRN (07:00)
[2024-01-06] MEDS ORDERED: MELOXICAM 7.5 MG TAB PO PRN (07:00)
[2024-01-06] MEDS: ONDANSETRON 4 MG/2 ML VIAL IVP ONE (07:12)
[2024-01-06] MEDS: DEXAMETHASONE SOD PHOSPHATE 4 MG/ML 1 ML VIAL IVP ONE (07:12)
[2024-01-06] MEDS: MIDAZOLAM 2 MG/2 ML VIAL IVP ONE (07:39)
--- NOTE | 2024-01-06 07:57 | P.ANPRN ---
Procedure Note - Anesthesia - Nerve Block Performed Bilateral Erector Spinae Single Time Out Performed: Yes Date of Procedure: 01/06/24 Procedure Start Time: 07:42 Procedure Stop Time: 07:52 Location of Patient: PreOp Indication: Acute Post-Operative Pain, Analgesia, Requested by Surgeon Sedation Type: Sedate with meaningful contact maintained Preparation: Sterile Prep Position: Prone Catheter: None Needle Types: Pajunk Needle Gauge: 21 Ultrasound used to visualize needle placement: Yes Ultrasound used to observe medication spread: Yes Injectate: 0.5% Ropivacaine (see comment for volume) (Ropiv 20 ml +dexamethason 4 mg--- On each side) Blood Aspirated: No Pain Paresthesia on Injection Noted: No Resistance on Injection: Normal Image Stored and Saved: Yes Events: Uneventful and Well Tolerated
[2024-01-06] MEDS ORDERED: GLYCOPYRROLATE 0.2 MG/ML 2 ML VIAL ONE (08:21)
[2024-01-06] MEDS ORDERED: ePHEDrine 50 MG/ML 1 ML VIAL ONE (08:21)
[2024-01-06] MEDS ORDERED: KETOROLAC 15 MG/ML 1 ML VIAL ONE (08:21)
[2024-01-06] MEDS ORDERED: DEXAMETHASONE SOD PHOSPHATE 4 MG/ML 1 ML VIAL ONE (08:21)
[2024-01-06] MEDS ORDERED: ROPIVACAINE 5 MG/ML 30 ML VIAL ONE (08:21)
[2024-01-06] MEDS ORDERED: HEPARIN SODIUM,PORCINE 5,000 UNIT/ML 1 ML VIAL ONE (08:21)
[2024-01-06] MEDS ORDERED: MIDAZOLAM 2 MG/2 ML VIAL ONE (08:21)
[2024-01-06] MEDS ORDERED: LIDOCAINE 1% INJ 10MG/ML (20 ML MDV) ONE (08:21)
[2024-01-06] MEDS ORDERED: NEOSTIGMINE 1 MG/ML 10 ML VIAL ONE (08:21)
[2024-01-06] MEDS ORDERED: HYDROmorphone (PF) 1 MG/ML ONE (08:21)
[2024-01-06] MEDS ORDERED: PROPOFOL 10 MG/ML 20 ML VIAL IV ONE (08:21)
[2024-01-06] MEDS ORDERED: fentaNYL (PF) 50 MCG/ML 2 ML AMP ONE (08:21)
[2024-01-06] MEDS ORDERED: ROCURONIUM 10 MG/ML (5 ML VIAL) IV ONE (08:21)
[2024-01-06] MEDS ORDERED: KETAMINE HCL IN 0.9 % NACL 50 MG/5 ML SYRINGE ONE (08:21)
[2024-01-06] MEDS: LIDOCAINE 1%-EPI 1:100,000 50 ML VIAL SQ ONE (09:14)
[2024-01-06 09:56] LABS: Amphetamine Screen,Urine Not Detected (NotDetected); Barbiturate Screen,Urine Not Detected (NotDetected); Benzodiazepines Screen,Urine Detected (NotDetected); Cocaine Screen,Urine Not Detected (NotDetected); Methadone Screen, Urine Not Detected (NotDetected); Opiate Screen,Urine Not Detected (NotDetected); Oxycodone Screen, Urine Not Detected (NotDetected); Phencyclidine Screen,Urine Not Detected (NotDetected); Tricyclic Antidepressant,Urine Not Detected (NotDetected); Urn Cannabinoid Scrn Detected (NotDetected)
--- NOTE | 2024-01-06 10:22 | P.CONS ---
History of Present Illness - Reason for Consult Consult date: 01/06/24 Medical management - Chief Complaint Colon adenoma - History of Present Illness Covering for Dr. Ashraf Patient is a 48-year-old male with a known history of seizure disorder, history of traumatic brain injury in 2018, daily alcohol use and currently everyday smoker was initially came to hospital for colonoscopy due to history of multiple colon masses. Patient had previous colonoscopy with poor prep with large masses identified at the sigmoid region. Patient initially presented to hospital on 01/05/2024 for endoscopy followed resection of large sigmoid colon mass and partial colon resection. Colonoscopy showed large unresectable sigmoid adenoma. Patient was admitted to hospital for robotic assisted sigmoid colectomy. EKG showed normal sinus rhythm and left anterior fascicular block. Laboratory data showed WBC 10.8 hemoglobin 17.3 and platelets 221 and MCV 102.9 Sodium 141 potassium 4.1 chloride 101 bicarb is 19 BUN 12 and creatinine 0.64 and blood sugar 99. AST 121 ALT 104 and alk phos 107 Urine drug screen showed benzodiazepines and marijuana. Patient had CT of the abdomen pelvis done on 09/29/2023 showed annular thickening mid sigmoid colon may reflect the site of patient's colon cancer. Correlate clinically. No suspicious lymphadenopathy or other findings of metastatic disease in the abdominal pelvis. Suspicious for filling defect in the lower common bile duct axial image 34 and coronal images 41 and 42. Bile duct is borderline in caliber at 5 mm yearly biliary obstruction not excluded. Correlate with alkaline phosphatase and bilirubin levels. Scattered prominent fluid-filled small bowel loops throughout. Transient. Mild hepatomegaly at 18.4 cm with moderate to severe hepatic steatosis. Review of Systems Constitutional: Patient denies any fever or chills . no Generalized weakness. Abdomen: Patient denied any nausea or vomiting or abd. pain Cardiovascular: Patient denies any chest pain or short of breath no palpitations. Respiratory: patient denied any cough . no sputum production. No shortness of breath Neurologic: Patient denied any numbness or tingling or headache. Musculoskeletal: Patient denies any complaints of joint swelling or deformity. Skin: Negative Psychiatric: Negative Endocrine: No heat or cold intolerance. No recent weight gain. Genitourinary: No dysuria or hematuria. 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 Past Psychological History: No Psychological Hx Reported Smoking Status: Current every day smoker Past Alcohol Use History: Daily Additional Past Alcohol Use History / Comment(s): drinks 3-4 glasses of wine a night. Started smoking at age 14. Past Drug Use History: Marijuana Additional Drug Use History / Comment(s): uses marijuana 1-2 times per week - Past Family History Father Family Medical History: Cancer, Diabetes Mellitus Additional Family Medical History / Comment(s): lung CA Mother Additional Family Medical History / Comment(s): breast CA Medications and Allergies Home Medications Medication Instructions Recorded Confirmed Type levETIRAcetam [Keppra] 250 mg PO QAM 12/31/23 12/31/23 History levETIRAcetam [Keppra] 500 mg PO HS 12/31/23 01/05/24 History Allergies Allergy/AdvReac Type Severity Reaction Status Date / Time No Known Allergies Allergy Verified 01/05/24 09:23 Physical Exam Vitals: Vital Signs Temp Pulse Resp BP Pulse Ox 01/06/24 07:55 51 L 12 95/61 100 01/06/24 07:05 97.8 F 54 L 12 112/73 99 01/06/24 01:01 97.9 F 63 12 91/52 97 01/05/24 19:43 98.5 F 67 14 115/60 97 01/05/24 13:34 97.5 F L 57 L 18 142/86 100 01/05/24 12:00 63 18 119/78 97 01/05/24 11:11 63 16 117/72 97 01/05/24 10:56 63 16 106/72 98 Intake and Output 01/05/24 01/06/24 01/06/24 22:59 06:59 14:59 Intake Total 500 1550 Balance 500 1550 Intake: IV 500 1550 Other: Voiding Method Toilet # Voids 2 1 PHYSICAL EXAMINATION: Patient is lying in the bed comfortably, no acute distress, awake alert and oriented.. HEENT: Normocephalic. Neck is supple. Pupils reactive. Nostrils clear. Oral cavity is moist. Neck reveals no JVD, carotid bruits, or thyromegaly. CHEST EXAMINATION: Trachea is central. Symmetrical expansion. Lung abarca clear to auscultation and percussion. CARDIAC: Normal S1, S2 with no gallops. No murmurs ABDOMEN: Soft. Bowel sounds present. Nontender. No organomegaly. No abdominal bruits. Extremities: reveal no edema. No clubbing or cyanosis Neurologically awake, alert, oriented x3 with well-coordinated movements. No focal deficits noted Skin: No rash or skin lesions. Psychiatric: Coperative. Nonsuicidal, Musculoskeletal: No joint swelling or deformity. Normal range of motion. Results CBC & Chem 7: 01/06/24 05:40 01/06/24 05:40 Labs: Abnormal Lab Results - Last 24 Hours (Table) 01/06/24 01/06/24 01/06/24 Range/Units 05:40 05:40 09:19 WBC 13.8 H (3.8-10.6) k/uL MCV 103.4 H (80.0-100.0) fL Neutrophils # 10.8 H (1.3-7.7) k/uL Chloride 111 H (98-107) mmol/L Carbon Dioxide 21 L (22-30) mmol/L BUN 7 L (9-20) mg/dL Creatinine 0.60 L (0.66-1.25) mg/dL ALT 62 H (4-49) U/L Total Protein 6.2 L (6.3-8.2) g/dL U Benzodiazepines Scrn Detected H (NotDetected) U Marijuana (THC) Screen Detected H (NotDetected) Assessment and Plan Assessment: Large sigmoid mass/adenoma. Unresectable by endoscopy. Patient is scheduled fo r robotic assisted sigmoid colectomy. History of multiple colon adenomas History of traumatic brain injury in 2018 Seizure disorder. On Keppra at home. Mild transaminitis likely due to hepatic steatosis. Improving. Daily alcohol use Macrocytosis likely due to alcohol use Mild leukocytosis Ongoing nicotine addiction/cigarette smoking Marijuana use UDS positive for benzodiazepines and marijuana GI and DVT prophylaxis as per primary team Plan: Patient will be continued on IV hydration. Encourage with incentive spirometry. Pain management and bowel regimen. Patient was started back on Keppra as per home regimen. Monitor liver enzymes. Bilirubin level is not elevated. Alk phos within normal limits. CBC and CMP tomorrow. Continue with DVT prophylaxis. Monitor for alcohol withdrawal symptoms. Smoking cessation has been counseled extensively. Will continue to follow and further recommendations based on the clinical course. Thank you currently for your consult. Time with Patient: Greater than 30
[2024-01-06] MEDS ORDERED: METOCLOPRAMIDE 5 MG/ML 2 ML VIAL IVP PRN (12:24)
[2024-01-06] MEDS ORDERED: BENZOCAINE/MENTHOL LOZENG 1 EACH LOZENGE MUCOUS MEM PRN (12:24)
--- NOTE | 2024-01-06 12:39 | P.OP ---
Date of Procedure: 01/06/24 Description of Procedure: SURGEON: GLENN LONGORIA MD PREOPERATIVE DIAGNOSES: 1. Obstructing sigmoid colon adenoma 2. History of traumatic brain injury 3. History of multiple colon adenomas 4. Leukocytosis 5. Elevated liver enzymes POSTOPERATIVE DIAGNOSES: 1. Obstructing sigmoid colon adenoma 2. History of traumatic brain injury 3. History of multiple colon adenomas 4. Leukocytosis 5. Elevated liver enzymes OPERATION: 1. Robotic-assisted daVinci Xi sigmoid colectomy with low anterior resection using 29 mm Ethicon powered stapler 2. Intraoperative colonoscopy used for sigmoidoscopy Anesthesia: GETA, local, regional Estimated Blood Loss (ml): 10 Pathology: 1. Sigmoid colon 2. EEA donuts 3. Proximal colotomy Condition: stable Disposition: floor COMPLICATIONS: None. Operative Findings: 1. Multiple scattered colonic adenomas with poor prep identified along transverse colon and ascending colon 2. Anastomosis with EEA stapler 29 mm 3. No tension or torsion along the anastomosis 4. Doughnuts thick and both sides and viable 5. Moderately redundant sigmoid colon without tension at anastomosis 6. Negative leak test with viable anastomosis. INDICATIONS: The patient is a 48-year-old male who presents obstructing sigmoid adenoma unresectable via endoscopic technique identified and confirmed on colonoscopy yesterday. Due to patient pre-existing history, he remained in the hospital to undergo bowel prep due to intolerance of Nunez prep as well as severe dehydration. Benefits and risks of surgical intervention was described in detail including infection, injury to the ureter, colostomy creation, possibility for additional surgery was discussed at length. Informed consent was obtained. All questions of the patient and family were answered. DESCRIPTION: Earlier the patient had undergone a bowel prep using the enhanced colon recovery program. The patient was transferred to the operating room and placed supine. After general induction, the abdomen was prepped and draped in standard sterile fashion. Ioban was placed along the abdomen to minimize any contamination of skin floor. A Ramirez catheter was placed. After a timeout protocol was performed, attention was then brought to the left upper quadrant whereby a 0 degree 5 mm laparoscopic trocar entry was performed. The abdominal cavity was entered and insufflated to 15 mmHg pressure, which was tolerated well. Diagnostic laparoscopy demonstrated scattered tattooing within the peritoneum. Mild turbid fluid was identified along the small bowel. Pre- existing gastrostomy tube adhesions stomach to anterior abdominal wall was found. Omental to abdominal wall adhesion was found of the lower abdomen. Moderate tattooing was found along the pelvis. Next a robotic 12-mm trocar was placed along the right lateral abdominal wall 20 cm superior from the pelvis. Two 8 mm ports were placed along the upper abdomen. Ports were placed 10 cm apart from each other including 20 cm away from the target anatomy of the left pelvis. The 12-mm port was exchanged for an 8 mm robotic port at the left upper quadrant. The robot was docked along the left lateral abdomen. The patient was positioned in steep Trendelenburg position at 21-degrees. Using atraumatic graspers and vessel sealer, the robotic system was docked and primed as described. Instruments were interchanged by the kennel assistant including hook cautery, needle street flusher driver, robotic stapler and vessel sealer. The robot stapler was prepared along the right lateral abdominal wall. The stapler 12-mm port was arranged along the right lateral abdominal wall. Next, attention was brought to identify the sigmoid colon. Adhesions of the sigmoid colon was identified and taken down with a combination of hook cautery including vessel sealer. A stay suture using 3- 0 silk was placed along the anterior serosa of the redundant sigmoid colon. The sigmoid mesentery was mobilized using a vessel sealer whereby the descending colon was marked and tagged. Using multiple fires of the robot stapler 60 mm green load, the proximal sigmoid colon was divided. Prior to division at the rectum, an intraoperative colonoscopy was performed to confirm complete resection of the tumor prior to division at the rectum. Sizers and placement of 29-mm Ethicon powered stapler was confirmed. Next, the mesentery of the sigmoid colon was mobilized towards the pelvic brim and sacral promontory using a vessel sealer. The sigmoid colon was divided using the robotic stapler 60 mm green staple loads. The rest of the sigmoid colon mesentery was mobilized using vessel sealer. Additionally, the sigmoid colon was mobilized onto the colon to avoid injury to the ureters. I re-scrubbed into the case. The robotic arms were temporarily undocked. A 29-mm anvil was placed with a 3-0 silk sutured at the tip of the anvil manual writer. Then the anvil was placed via the left upper quadrant 12 mm port. All robotic arms were re-docked. I went back to the console. The staple line was opened using cautery. The anvil was entered into the proximal descending colon. The colotomy was closed using 60 mm green load. Next, the sharp tip of the anvil manual writer was brought through the staple line. The anvil manual writer was removed from the abdomen using empty clip appliers. I went to the foot of the bed to place the powered Ethicon 29 mm stapler via the rectum. The anvil and stapler were mated for 1 minute. The doughnuts were intact on both sides and thick. An intraoperative leak test was performed as I inserted the colonoscope to the anastomosis. Endoscopic images were obtained. Additionally, the colonoscope was advanced towards the cecum whereby additional adenomas were found however limited view of the mucosa due to moderate retained stool. Irrigation was placed in the pelvis and no air leaks were identified. Irrigation fluid was aspirated from the pelvis until dry. I went back to the console. All sponges and needles were removed from the abdominal cavity. The robot was undocked. I re-scrubbed into the case. Via the left upper quadrant port, the sigmoid colon was removed using 15 mm Endo Catch bag. All sponges were removed from the abdominal cavity. The left upper quadrant incision was widened to 3-cm. No contamination had occurred throughout the case. The fascial defect was oversewn using 0 Vicryl and a Marvin Garcia. Next all pneumoperitoneum was evacuated from the abdominal cavity. The 8-mm trocar sites were reapproximated using 4-0 Monocryl in an interrupted subcuticular fashion. Local anesthetic was infiltrated to all wounds for postop analgesia. All incisions were also cleansed with diluted hydrogen peroxide. An [employer] advance surgical dressing was placed over the colon extraction site. Liquid glue was applied to the rest of the skin incisions. The patient had tolerated the procedure well. The patient was extubated successfully. The patient was transferred to the postanesthesia care unit in stable condition. Intraoperative findings were described in detail to the patient's family. Patient will need repeat colonoscopy with prolonged bowel prep of 3 days for complete resection of residual adenomas found proximally within the colon after resecting obstructive sigmoid colon mass.
[2024-01-06] MEDS: SODIUM CHLORIDE 0.9% 2,000 ML IV ONE (13:53)
[2024-01-06] MEDS: KETOROLAC 15 MG/ML 1 ML VIAL IVP SCH (17:26)
[2024-01-06] MEDS: PIPERACILLIN-TAZOBACTAM 3.375 GM in SODIUM CHLORIDE 0.9% 100 ML IVPB SCH (17:27)
[2024-01-06] MEDS: HEPARIN SODIUM,PORCINE 5,000 UNIT/ML 1 ML VIAL SQ SCH (20:06)
[2024-01-07] MEDS: HYDROmorphone 1 MG/ML 1 ML SYRINGE IVP PRN
[2024-01-07 02:19] VITALS: TEMP 98.1
[2024-01-07 08:17] VITALS: BP 134/82; PULSE 59; RESP 18
[2024-01-07 08:33] LABS: HCT 40.3 % (39.6-50.0); HGB 13.5 g/dL (13.0-17.0); MCHC 33.5 g/dL (32.0-37.0); MCV 98.5 FL (80.0-97.0); Mean Platelet Volume 10.9 FL (9.5-12.2); NRBC Per 100 WBC 0 X 10*3/uL (0.00-0.01); Platelet Count 164 X 10*3/uL (140-440); RBC 4.09 X 10*6/uL (4.40-5.60); RDW 14.2 % (11.5-14.5); WBC 12.04 X 10*3/uL (4.50-10.00)
[2024-01-07] MEDS: ALVIMOPAN 12 MG CAPSULE PO SCH (08:52)
[2024-01-07 08:54] LABS: BUN/Creat Ratio 11.71 Ratio (12.00-20.00); Blood Urea Nitrogen 8.2 mg/dL (9.0-27.0); Carbon Dioxide 18.5 mmol/L (21.6-31.8); Chloride 104 mmol/L (96-109); Glucose 95 mg/dL (70-110); Sodium 136 mmol/L (135-145)
[2024-01-07 08:55] LABS: Calcium 8.7 mg/dL (8.7-10.3)
[2024-01-07 09:53] LABS: Basophils # (A) 0.02 X 10*3/uL (0.00-0.10); Basophils % (A) 0.2 %; Eosinophils # (A) 0.02 X 10*3/uL (0.04-0.35); Eosinophils % (A) 0.2 %; Lymphocytes # (A) 2.03 X 10*3/uL (0.90-5.00); Lymphocytes % (A) 16.9 %; Monocytes # (A) 1.55 X 10*3/uL (0.20-1.00); Monocytes % (A) 12.9 %; Neutrophils # (A) 8.35 X 10*3/uL (1.80-7.70); Neutrophils % (A) 69.2 %; RBC Morphology Normal (Normal)
[2024-01-07] MEDS: SODIUM CHLORIDE 0.9% 2,000 ML IV ONE (11:05)
--- NOTE | 2024-01-07 11:32 | P.DS ---
Providers Date of admission: 01/05/24 09:04 Expected date of discharge: 01/07/24 Attending physician: Beba Mcneal Consults: 01/05/24 10:56 Consult Physician Routine Consulting Provider: Brain Ashraf Reason/Comments: Medical management Do you want consulting provider notified?: Yes Primary care physician: Brain Ashraf Hospital Course: Discharge diagnosis 1. Obstructing sigmoid colon adenoma 2. History of traumatic brain injury 3. History of multiple colon adenomas 4. Leukocytosis present before surgery 5. Elevated liver enzymes Hospital course The patient is a 48-year-old male who presents obstructing sigmoid adenoma. He is status post robotic assisted sigmoid colectomy with low anterior resection. Patient reports his pain is controlled. He is tolerating diet. He has been up and ambulating. He is afebrile. He is stable for discharge. Patient discharged with antibiotics. Physician Alpine Patroller note has been reviewed by physician. Signing provider agrees with the documented findings, assessment, and plan of care. As above. Patient presents with history of unresectable adenoma. He is status post colectomy. He is passing flatus. He is tolerating diet. Stable for discharge. Patient Condition at Discharge: Stable Plan - Discharge Summary Discharge Rx Participant: No New Discharge Prescriptions: New Simethicone [Gas-X] 125 mg PO AC-TID PRN #20 capsule PRN Reason: Pain Acetaminophen Tab [Tylenol Tab] 1,000 mg PO Q6HR PRN #30 tablet PRN Reason: Pain Amoxic-Pot Clav 875-125Mg [Augmentin 875-125] 1 tab PO Q12HR 5 Days #10 tab Cyclobenzaprine [Flexeril] 10 mg PO TID #30 tab Ibuprofen [Motrin] 600 mg PO Q8HR PRN #30 tab PRN Reason: Pain Continue levETIRAcetam [Keppra] 500 mg PO HS levETIRAcetam [Keppra] 250 mg PO QAM Discharge Medication List levETIRAcetam [Keppra] 250 mg PO QAM 12/31/23 [History] levETIRAcetam [Keppra] 500 mg PO HS 12/31/23 [History] Acetaminophen Tab [Tylenol Tab] 1,000 mg PO Q6HR PRN #30 tablet 01/07/24 [Rx] Amoxic-Pot Clav 875-125Mg [Augmentin 875-125] 1 tab PO Q12HR 5 Days #10 tab 01/07/24 [Rx] Cyclobenzaprine [Flexeril] 10 mg PO TID #30 tab 01/07/24 [Rx] Ibuprofen [Motrin] 600 mg PO Q8HR PRN #30 tab 01/07/24 [Rx] Simethicone [Gas-X] 125 mg PO AC-TID PRN #20 capsule 01/07/24 [Rx] Follow up Appointment(s)/Referral(s): Beba Mcneal MD [STAFF PHYSICIAN] - 01/11/24 1:00 pm Patient Instructions/Handouts: Colectomy Diet (DC), Laparoscopic Bowel Resection (DC) Activity/Diet/Wound Care/Special Instructions: EXPECT BOWEL MOVEMENT WITH BLOOD FOR 1 WEEK TAKE LAXATIVE FOR CONSTIPATION AFTER 4 DAYS, 01/10/24 Wear abdominal binder for comfort. No lifting over 4 pounds in 4 weeks 02/04/24 May shower. No bath tub soaks for two weeks until 01/20/24 Avoid steak, tough meats and seeds such as raspberry seeds. See diverticulitis, low fiber, colectomy diet No SMOKING Discharge Disposition: HOME SELF-CARE
[2024-01-08 16:21] LABS: Anabasine Urine 9.3 ng/mL (<2.0)
--- NOTE | 2024-01-10 21:26 | P.PN ---
Subjective Progress Note Date: 01/07/24 Patient is a 48-year-old male with a known history of seizure disorder, history of traumatic brain injury in 2018, daily alcohol use and currently everyday smoker was initially came to hospital for colonoscopy due to history of multiple colon masses. Patient had previous colonoscopy with poor prep with large masses identified at the sigmoid region. Patient initially presented to hospital on 01/05/2024 for endoscopy followed resection of large sigmoid colon mass and partial colon resection. Colonoscopy showed large unresectable sigmoid adenoma. Patient was admitted to hospital for robotic assisted sigmoid colectomy. EKG showed normal sinus rhythm and left anterior fascicular block. Laboratory data showed WBC 10.8 hemoglobin 17.3 and platelets 221 and MCV 102.9 Sodium 141 potassium 4.1 chloride 101 bicarb is 19 BUN 12 and creatinine 0.64 and blood sugar 99. AST 121 ALT 104 and alk phos 107 Urine drug screen showed benzodiazepines and marijuana. Patient had CT of the abdomen pelvis done on 09/29/2023 showed annular thickening mid sigmoid colon may reflect the site of patient's colon cancer. Correlate clinically. No suspicious lymphadenopathy or other findings of metastatic disease in the abdominal pelvis. Suspicious for filling defect in the lower common bile duct axial image 34 and coronal images 41 and 42. Bile duct is borderline in caliber at 5 mm yearly biliary obstruction not excluded. Correlate with alkaline phosphatase and bilirubin levels. Scattered prominent fluid-filled small bowel loops throughout. Transient. Mild hepatomegaly at 18.4 cm with moderate to severe hepatic steatosis. 01/07/2024 Patient is postoperative day 1. Abdominal pain is controlled with medications. Otherwise patient was started on oral diet which he has been tolerating well. Able to get up and ambulate in the hallway. Patient has been afebrile. No nausea or vomiting. Denies any chest pain or shortness of breath. No other acute overnight issues. Patient is being discharged home with antibiotic course. Laboratory data showed WBC 12.04, hemoglobin 13.5 and platelets 164 Sodium 136 potassium 4.0 chloride 104 bicarb is 18.5 BUN 8.1 creatinine 0.7 and blood sugar 114. Current medications reviewed. Objective - Vital Signs Vital signs: Vital Signs Temp 98.1 F 01/07/24 01:58 Pulse 59 L 01/07/24 06:54 Resp 18 01/07/24 06:54 BP 134/82 01/07/24 06:54 Pulse Ox 98 01/07/24 06:54 FiO2 Intake & Output 01/06/24 01/07/24 01/07/24 18:59 06:59 18:59 Intake Total 3150 550 Output Total 435 700 Balance 2715 -150 Intake: IV 3150 Intake, IV Titration 550 Amount Piperacillin-Tazobactam 3 100 .375 gm In Sodium Chloride 0.9% 100 ml @ 25 mls/hr IVPB Q8HR JOHN Rx# :[id number] Sodium Chloride 0.9% 1, 450 000 ml @ 75 mls/hr IV . [id number] [facility] Rx#:[id number] Output: Urine 425 700 Estimated Blood Loss 10 Other: Voiding Method Indwelling Catheter - Exam PHYSICAL EXAMINATION: Patient is lying in the bed comfortably, no acute distress, awake alert and oriented.. HEENT: Normocephalic. Neck is supple. Pupils reactive. Nostrils clear. Oral cavity is moist. Neck reveals no JVD, carotid bruits, or thyromegaly. CHEST EXAMINATION: Trachea is central. Symmetrical expansion. Lung abarca clear to auscultation and percussion. CARDIAC: Normal S1, S2 with no gallops. No murmurs ABDOMEN: Soft. Bowel sounds present. Mild tenderness at the surgical sites. No guarding.. No organomegaly. No abdominal bruits. Extremities: reveal no edema. No clubbing or cyanosis Neurologically awake, alert, oriented x3 with well-coordinated movements. No focal deficits noted Skin: No rash or skin lesions. Psychiatric: Coperative. Nonsuicidal Musculoskeletal: No joint swelling or deformity. Normal range of motion. - Labs CBC & Chem 7: 01/07/24 05:22 01/07/24 05:22 Labs: Abnormal Lab Results - Last 24 Hours (Table) 01/07/24 01/07/24 Range/Units 05:22 05:22 WBC 12.04 H (4.50-10.00) X 10*3/uL RBC 4.09 L (4.40-5.60) X 10*6/uL MCV 98.5 H (80.0-97.0) FL MCH 33.0 H (27.0-32.0) pg Immature Gran # 0.07 H (0.00-0.04) X 10*3/uL Neutrophils # 8.35 H (1.80-7.70) X 10*3/uL Monocytes # 1.55 H (0.20-1.00) X 10*3/uL Eosinophils # 0.02 L (0.04-0.35) X 10*3/uL Carbon Dioxide 18.5 L (21.6-31.8) mmol/L Anion Gap 13.50 H (4.00-12.00) mmol/L BUN 8.2 L (9.0-27.0) mg/dL BUN/Creatinine Ratio 11.71 L (12.00-20.00) Ratio Assessment and Plan Assessment: Large sigmoid mass/adenoma. Unresectable by endoscopy. Patient is s/p robotic assisted sigmoid colectomy. Postoperative day 1 History of multiple colon adenomas History of traumatic brain injury in 2018 Seizure disorder. On Keppra at home. Mild transaminitis likely due to hepatic steatosis. Improving. Daily alcohol use Macrocytosis likely due to alcohol use Mild leukocytosis Ongoing nicotine addiction/cigarette smoking Marijuana use UDS positive for benzodiazepines and marijuana GI and DVT prophylaxis as per primary team Plan: Patient is tolerating oral diet.. Encourage with incentive spirometry. Pain management and bowel regimen. Patient was started back on Keppra as per home regimen. Monitor liver enzymes. Bilirubin level is not elevated. Alk phos within normal limits. Smoking cessation has been counseled extensively. Patient is being discharged home today. Discharge medication reconciliation was done. Patient was advised to follow-up with primary care physician in the next 3 to 5 days.
--- NOTE | 2024-02-09 12:45 | P.PN ---
Progress Note - Text Progress Note Date: 02/09/24 [id number] - [id number] Patient contacted at home. He reports generalized weakness. He has not been eating adequate protein intake. He reports walking his dog 2 miles a day. Sleep is 4 hours daily. Patient advised to start a multivitamin including eating at least 100 g of protein a day and getting 68 hours of sleep for least 1 week to improve overall outcome. Follow-up telehealth in 1 week.
== END 2024-01-07 11:47 | disposition home or self-care (01) | DRG 331 ==
LOC: ORWHC2ENDO 08:44 → 4SSUR 09:04 → OBSVTOIN 09:04 → ORWHC2ENDO 09:04 → 4SSUR 10:55
PROVIDERS: ADMIT Surgery Plastic and Reconstructive Surgery; ATTEND Surgery Plastic and Reconstructive Surgery
PROC: 3E0H8KZ Introduction of Other Diagnostic Substance into Lower GI, Via Natural or Artificial Opening Endoscopic (ICD-10-PCS; 2024-01-05)
PROC: 0DNU0ZZ Release Omentum, Open Approach (ICD-10-PCS; 2024-01-06)
PROC: 0DNW0ZZ Release Peritoneum, Open Approach (ICD-10-PCS; 2024-01-06)
PROC: 0DJD8ZZ Inspection of Lower Intestinal Tract, Via Natural or Artificial Opening Endoscopic (ICD-10-PCS; 2024-01-06)
PROC: 8E0W0CZ Robotic Assisted Procedure of Trunk Region, Open Approach (ICD-10-PCS; 2024-01-06)
PROC: 0DTN0ZZ Resection of Sigmoid Colon, Open Approach (ICD-10-PCS; principal; 2024-01-06 08:00)
DX: C18.7 Malignant neoplasm of sigmoid colon (principal); D72.829 Elevated white blood cell count, unspecified; D75.89 Other specified diseases of blood and blood-forming organs; K57.30 Diverticulosis of large intestine without perforation or abscess without bleeding; I44.4 Left anterior fascicular block; F17.210 Nicotine dependence, cigarettes, uncomplicated; G40.909 Epilepsy, unspecified, not intractable, without status epilepticus; K64.8 Other hemorrhoids; K66.0 Peritoneal adhesions (postprocedural) (postinfection); K76.0 Fatty (change of) liver, not elsewhere classified; Z79.899 Other long term (current) drug therapy; Z87.820 Personal history of traumatic brain injury; R74.01 Elevation of levels of liver transaminase levels
CPT/HCPCS: 45381; 64999; 80048; 80053; 80306; 80323; 85025; 85610; 85730; 86850; 86900; 86901; 88309; 93005